=== PATIENT | female | born 1960 | race Caucasian/White ===

== ENCOUNTER 2020-11-04 07:45 | Outpatient (REF) | payer OTHER, SELFPAY ==
[2020-11-04 10:34] LABS: Anion Gap 11 (12-20); Blood Urea Nitrogen 18 mg/dL (9-16); Calcium 9.1 mg/dL (8.4-10.2); Carbon Dioxide 29 mmol/L (22-29); Chloride 104 mmol/L (96-108); Cholesterol 188 mg/dL; Estimated Glomerular Filt Rate > 60; Glucose Fasting 97 mg/dL (60-99); HDL Cholesterol 87 mg/dL; LDL Cholesterol Calculated 87 mg/dl; Potassium 4.8 mmol/l (3.3-5.1); Sodium 139 mmol/L (135-145); Triglycerides 73 mg/dL
== END 2020-11-04 07:46 | disposition home or self-care (01) ==
LOC: HO.10HDL 07:45
PROVIDERS: PCP Internal Medicine; Visit Provider Internal Medicine
DX: Z00.00 Encounter for general adult medical examination without abnormal findings (principal)
CPT/HCPCS: 80048; 80061

== ENCOUNTER 2020-12-03 12:54 | Outpatient (REF) | payer OTHER, SELFPAY ==
--- NOTE | 2020-12-03 12:59 | US_ITS ---
EXAMINATION: US DIAGNOSTIC ULTRASOUND BREAST, LEFT CLINICAL INFORMATION: Localized swelling/mass/lump left axilla. COMPARISON: None at this time. TECHNIQUE: Ultrasound of the breast is performed with real-time del castillo scale imaging and color Doppler. FINDINGS: Targeted left axillary ultrasound did not demonstrate any abnormal cystic or solid masses. No region of abnormal distal sound shadowing identified. There is a normal-appearing lymph node without evidence of cortical thickening or lobulation in region of where patient feels a lump. Results are discussed with the patient at time of visit. US/US breast LT limited IMPRESSION: No specific mammographic or ultrasound findings to suggest malignancy. Addendum to report will be made when old films are available. ASSESSMENT: BI-RADS 0: Incomplete -needs comparison with previous studies. RECOMMENDATION: Compare with previous studies.
--- NOTE | 2020-12-03 12:59 | MM_ITS ---
EXAMINATION: MM DIAGNOSTIC DIGITAL MAMMOGRAPHY, LEFT TARGETED LEFT BREAST ULTRASOUND CLINICAL INFORMATION: Localized swelling/mass/lump left axilla. The lifetime risk of breast cancer based on the Tyrer-Cuzick Model is 15.5%. COMPARISON: Mammography: None at this time. Patient has had previous studies done TECHNIQUE: Digital mammography is performed in craniocaudal and mediolateral oblique views along with computer-aided detection (CAD). Targeted left breast ultrasound. FINDINGS: The breasts are heterogeneously dense, which may obscure small masses (ACR BI-RADS breast composition Category c). There are no significant masses, abnormal calcifications, or other abnormalities. Targeted left axillary ultrasound did not demonstrate any abnormal cystic or solid masses. No region of abnormal distal sound shadowing identified. There is a normal-appearing lymph node without evidence of cortical thickening or lobulation in region of where patient feels lump. Results are discussed with the patient at time of visit. MM/MM diagnostic mammo unilat LT IMPRESSION: No specific mammographic or ultrasound findings to suggest malignancy. Addendum to report will be made when old films are available. ASSESSMENT: BI-RADS 0: Incomplete -needs comparison with previous studies. RECOMMENDATION: Compare with previous studies. This patient's information was entered into a reminder system with a target due date for their next mammogram.
== END 2020-12-03 12:55 | disposition home or self-care (01) ==
LOC: HO.MAMMO 12:54
PROVIDERS: PCP Internal Medicine; Visit Provider Internal Medicine
DX: R22.32 Localized swelling, mass and lump, left upper limb (principal)
CPT/HCPCS: 76642; 77065

== ENCOUNTER 2022-12-27 09:12 | Outpatient (REF) | payer OTHER, SELFPAY ==
[2022-12-27 10:35] LABS: MANUAL DIFF FLAG NO
[2022-12-27 10:46] LABS: Basophils Percent Auto 0.3 % (0-2); Eosinophils Absolute Auto 0.2 X10*3/uL (0.0-0.4); Eosinophils Percent Auto 2.1 % (0-4); Hematocrit 40.5 % (37.0-47.0); Hemoglobin 13.3 g/dl (12.0-16.0); Imm Gran Abs Auto 0.03 X10*3/uL (0.00-0.03); Imm Gran Pct Auto 0.4 % (0.0-0.4); Lymphocytes Absolute Auto 2.4 X10*3/uL (1.2-4.9); Lymphocytes Percent Auto 33.3 % (20-40); Mean Corpuscular HGB Conc 32.8 g/dl (31.0-35.0); Mean Corpuscular Volume 91.4 fL (80.0-98.0); Mean Platelet Volume 9.7 fL (9.4-12.3); Monocytes Absolute Auto 0.4 X10*3/uL (0.1-1.2); Neutrophils Absolute Auto 4.2 x10*3/uL (2.0-8.3); Neutrophils Percent Auto 57.9 % (45-73); Platelet Count 275 X10*3/uL (160-400); Red Blood Count 4.43 X10*6/uL (4.20-5.50); White Blood Count 7.2 X10*3/uL (4.8-10.8)
[2022-12-27 12:04] LABS: Alanine Aminotransferase 17 U/L (0-31); Albumin Level 4.1 g/dL (3.5-5.0); Anion Gap 12 (12-20); Aspartate Amino Transferase 23 U/L (5-31); Bilirubin Total 0.7 mg/dL (0.0-1.0); Blood Urea Nitrogen 19 mg/dL (9-16); Calcium 9.6 mg/dL (8.4-10.2); Carbon Dioxide 29 mmol/L (22-29); Chloride 107 mmol/L (96-108); Cholesterol 203 mg/dL; Estimated Glomerular Filt Rate > 60; Glucose Random 100 mg/dL (60-115); HDL Cholesterol 81 mg/dL; LDL Cholesterol Calculated 106 mg/dl; Potassium 5.2 mmol/L (3.3-5.1); Sodium 143 mmol/L (135-145); Total Protein 6.5 g/dL (6.5-8.0); Triglycerides 80 mg/dL
[2022-12-27 12:05] LABS: Alkaline Phosphatase 66 U/L (39-117)
[2022-12-27 12:20] LABS: Folate 16.3 ng/mL (> or = 4.0); Free T4 (Free Thyroxine) 0.83 ng/dL (0.71-1.85); Thyroid Stimulating Hormone 1.77 uIU/mL (0.32-4.0); Vitamin B12 563 pg/mL (200-900); Vitamin D 25-OH Total 32.9 ng/mL (>30)
== END 2022-12-27 09:13 | disposition home or self-care (01) ==
LOC: HO.10HDL 09:12
PROVIDERS: Visit Provider Internal Medicine
DX: R92.1 Mammographic calcification found on diagnostic imaging of breast (principal); E78.00 Pure hypercholesterolemia, unspecified
CPT/HCPCS: 36415; 80053; 80061; 82306; 82607; 82746; 84439; 84443; 85025

== ENCOUNTER → 2023-02-24 09:06 | Outpatient (BNVA) | payer OTHER, SELFPAY | PROVIDERS: PCP Internal Medicine; Visit Provider Internal Medicine | DX: Z13.89 Encounter for screening for other disorder (principal) ==

== ENCOUNTER 2023-08-17 07:55 | Day surgery (SDC) | payer OTHER, SELFPAY ==
[2023-08-15 07:18] VITALS: BMI 20.8
--- NOTE | 2023-08-16 10:45 | P.CONAN_ITS ---
Documented by User: Emmanuelle Saab NP 08/16/23 10:46 HPI - Anesthesia Eval Consult details Narrative: 63yo F for Colonoscopy PMFSH Active Problems Active Problems: All Active Problems (Updated 02/24/23 @ 09:44 by Maday De Luna MD) Colon cancer screening (Acute) Hyperkalemia (Acute) Elevated fasting blood sugar (Acute) Hyperkalemia (Acute) Breast calcification, right (Acute) Mass of left axilla (Acute) Annual physical exam (Acute) Past Medical History Medical History Pneumonia Right bundle branch block Family History Family History Father Dementia Chronic mental illness Pancreatic cancer Mother Hypertension Temporal arteritis Hyperthyroidism Sister Colon polyps Breast cancer H/O mastectomy Maternal Grandmother Breast cancer H/O mastectomy Paternal Grandfather Lung cancer Surgical History Surgical History History of tonsillectomy History of wisdom tooth extraction Social History Social History Housing: House Alcohol intake: current Patient Tobacco Use Status: Never used Tobacco e-Cigarette/Vaping Use: Never Used Second Hand Smoke Exposure: No Use of substances other than those prescribed or required for medical reasons: No Are you DNR?: No Advance Directives: No Advance Directives Information Provided: Yes Current occupational status: employed Meds Allergies Allergy/AdvReac Type Severity Reaction Status Date / Time No Known Allergies Allergy Verified 02/24/23 09:16 Home Medications Medication Instructions Recorded Confirmed Last Taken Type multivitamin 1 tab PO DAILY 11/10/20 01/10/23 Unknown History uvafem 01/10/23 Unknown History Exam Exam Date and Time: August 16, 2023 1045 Height,Weight and Vital Signs: Height 5 ft 8 in Weight 62.142 kg Assessment and Plan Assessment Anesthesia Assessment: Chart Reviewed Documented by User: Ro Terrell MD 08/17/23 09:09 [facility] Past Medical History Medical History Pneumonia Right bundle branch block Family History Family History Father Dementia Chronic mental illness Pancreatic cancer Mother Hypertension Temporal arteritis Hyperthyroidism Sister Colon polyps Breast cancer H/O mastectomy Maternal Grandmother Breast cancer H/O mastectomy Paternal Grandfather Lung cancer Family history of problems with anesthesia: No Surgical History Surgical History History of tonsillectomy History of wisdom tooth extraction History of Problems with Anesthesia: No Social History Social History Housing: House Alcohol intake: current Patient Tobacco Use Status: Never used Tobacco e-Cigarette/Vaping Use: Never Used Second Hand Smoke Exposure: No Use of substances other than those prescribed or required for medical reasons: No Are you DNR?: No Advance Directives: No Advance Directives Information Provided: Yes Current occupational status: employed Meds Allergies Allergy/AdvReac Type Severity Reaction Status Date / Time No Known Allergies Allergy Verified 02/24/23 09:16 Home Medications Medication Instructions Recorded Confirmed Last Taken Type multivitamin 1 tab PO DAILY 11/10/20 01/10/23 Unknown History uvafem 01/10/23 Unknown History Exam Airway Mallampati Class: II TM Dist: >3cm Neck ROM: Full Assessment and Plan Assessment Anesthesia Assessment: Anesthesia Plan Discussed Final Anesthetic Review Family History of Problems with Anesthesia: No History of Problems with Anesthesia: No NPO: Yes ASA Class: II Final Preanesthetic Review: No Changes in Pt Med Stat, Meds/Allgs Chart Reviewed, Consent Obtained/Reviewed and Anes Risks/Benef Reviewed Patient Risk: Low Procedure Risk: Low Anesthetic Plan Anesthetic Plan: MAC: Disposition: Standard PACU
[2023-08-17 08:25] VITALS: BP 152/77; PULSE 83; RESP 16; TEMP 36.6; O2SAT 99
--- NOTE | 2023-08-17 08:36 | P.HPSUR_ITS ---
Pre-Procedural Eval Section A Date of Service: 08/17/23 Section B Chief Complaint: Encounter for screening for malignant neoplasm Details of Present Illness: sister with polyps Relevant Family History (Specify if Yes): Yes Relevant Social History: None Present Medications: see Short Stay Collaborative assessment Medical History: Significant History (Pneumonia Right bundle branch block) History of Previous Operations: Relevant previous surgery/procedure and date(s) (tonsils) Allergies: Allergies Allergy/AdvReac Type Severity Reaction Status Date / Time No Known Allergies Allergy Verified 02/24/23 09:16 Review of Systems Sugical H&P ROS: Negative: Constitution, Cardiovascular, Respiratory, Neurological, Psychiatric, Hem-Onc, Allergic/Immunologic, Gastrointestinal, Genitourinary, Musculoskeletal, Integumentary, Endocrine and E yes/Ears/Nose/Throat Exam Surgical H&P Exam: Normal: HEENT, Normal: Heart, Normal: Lungs, Normal: Extremities, Normal: Abdomen, Normal: Skin and Normal: Neurological Plan Diagnosis/Plan: Unchanged I have reviewed the history and physical and performed a pertinent physical examination on my patient. No changes have occurred unless specified. Time Spent With Patient Time: Total time managing care of this patient today ____ minutes.
[2023-08-17] MEDS: Lactated Ringers 1,000 ML 100 ML IVCONT (08:42)
--- NOTE | 2023-08-17 09:06 | P.OP_ITS ---
Operative Note Operative Note Date of Service: 08/17/23 Narrative: Operative Information Procedure Description: Colonoscopy Indication: screening Anesthesia: MAC COLONOSCOPY Instrument: Olympus variable stiffness pediatric scope 190L Colonoscopy Monitoring: Vital signs and clinical assessment, continuous EKG monitoring, Pulse oximetry, Carbon Dioxide monitoring and blood pressure monitoring were done throughout the procedure. Colon withdrawal time was 7 minutes. Procedure: The patient was placed in the left lateral decubitis position and pre-procedure medications were administered. After a digital rectal examination of the ano-rectum, the video colonoscope was inserted into the rectum and advanced through the colon to the cecum/TI. The colonoscope was slowly withdrawn in a retrograde panoramic fashion and the colon mucosa was carefully examined including a retroflexed view of the rectum. Findings and interventions are described below. Procedure Difficulty: moderate due to redundant colon Findings: Terminal Ileum-normal Cecum:normal Ascending Colon: normal Transverse Colon -normal Descending Colon:normal Sigmoid Colon: normal Rectum: Retroflexion with small internal hemorrhoids, grade I Anorectum - normal Colon preparation: [place] Bowel Preparation Scale Right colon; 2 Transverse colon: 3 Left colon; 3 (0 = Unprepared colon segment with mucosa not seen due to solid stool that cannot be cleared. 1 = Portion of mucosa of the colon segment seen, but other areas of the colon segment not well seen due to staining, residual stool and/or opaque liquid. 2 = Minor amount of residual staining, small fragments of stool and/or opaque liquid, but mucosa of colon segment seen well. 3 = Entire mucosa of colon segment seen well with no residual staining, small fragments of stool or opaque liquid) Impression and Post Procedure Diagnosis: redundant colon internal hemorrhoids Plan: High fiber diet leaflet Avoid straining at stool, epsom salts and sitz bath, anusol supps or cream Repeat Colonoscopy in 5 years due to FH of polyps or earlier if clinically indicated Above findings were reviewed with the patient and relevant handouts were provided if indicated.
[2023-08-17 09:37] VITALS: BP 80/45; PULSE 66; RESP 16; TEMP 36.4; O2SAT 97
[2023-08-17 09:52] VITALS: BP 118/57; PULSE 67; RESP 16; O2SAT 98
[2023-08-17 10:07] VITALS: BP 117/57; PULSE 65; RESP 16; TEMP 36.8; O2SAT 98
== END 2023-08-17 10:25 | disposition home or self-care (01) ==
PROVIDERS: PCP Internal Medicine; Visit Provider Internal Medicine Gastroenterology
PROC: 0DJD8ZZ Inspection of Lower Intestinal Tract, Via Natural or Artificial Opening Endoscopic (ICD-10-PCS; CPT 45378; principal; 2023-08-17 09:10)
DX: Z12.11 Encounter for screening for malignant neoplasm of colon (principal); Z83.71 Family history of colonic polyps; K64.0 First degree hemorrhoids; Q43.8 Other specified congenital malformations of intestine; I45.10 Unspecified right bundle-branch block
CPT/HCPCS: 45378

== ENCOUNTER → 2023-08-17 07:55 | Outpatient (BNV) | payer OTHER, SELFPAY | PROVIDERS: PCP Internal Medicine; Visit Provider Internal Medicine Gastroenterology | DX: Z12.11 Encounter for screening for malignant neoplasm of colon (principal); K64.9 Unspecified hemorrhoids; Q43.8 Other specified congenital malformations of intestine | CPT/HCPCS: 45378 ==

== ENCOUNTER 2023-08-28 09:03 | Outpatient (AMB) | payer OTHER, SELFPAY ==
--- NOTE | 2023-08-28 09:07 | MHC.OFFVIS ---
Intake Vital Signs 08/28/23 09:08 Height 5 ft 8 in Weight 136 lb 10.986 oz BMI 20.8 BP 134/76 Blood Pressure Location Lt brachial Position Sitting Pulse 98 Intake Visit Reasons: S/p Colon Intake Note: Princess presents in the office as a follow up colonoscopy. CC: She states that she is not having any concerns - just here for the results. [employer] Required: No Allergies No Known Allergies Allergy (Verified 08/28/23 09:10) HPI HPI Comments History of Present Illness Details 62 year old female presenting to the office for follow up. 06/26/23: Fam hx is documented as fam hx of colon cancer in her sister however she clarifies that she had polyps not CRC. Otherwise pt does have any personal or fam hx of colon cancer. Last colo 2018: no polyps. diverticulosis. Patient does not have any other gastrointestinal symptoms to include abdominal pain, nausea, vomiting, diarrhea, blood in stool, weight loss. Labs reviewed to confirm patient does not have anemia. 08/17/23: [place] Good prep. redundant colon internal hemorrhoids 08/28/23: No gastrointestinal complaints. Reviewed colo report. [facility] Medical History Pneumonia Right bundle branch block Surgical History Hx of colonoscopy History of wisdom tooth extraction History of tonsillectomy Family History Father Dementia Chronic mental illness Pancreatic cancer Mother Hypertension Temporal arteritis Hyperthyroidism Sister Colon polyps Breast cancer H/O mastectomy Maternal Grandmother Breast cancer H/O mastectomy Paternal Grandfather Lung cancer Social History Housing: House Alcohol intake: current Patient Tobacco Use Status: Never used Tobacco e-Cigarette/Vaping Use: Never Used Second Hand Smoke Exposure: No Current occupational status: employed Review of Systems Const All systems reviewed & are unremarkable except as noted in HPI and below Physical Exam Vital Signs: Last Vital Signs Pulse 98 08/28/23 09:08 BP 134/76 08/28/23 09:08 BMI result Body Mass Index 20.8 Gen appear: NAD, well nourished HEENT: no icterus, no cervical lymphadenopathy Chest: clear to auscultation CVS: Regular S1/S2 Abd: soft, nontender, nondistended Ext: no peripheral edema Neuro: A/Ox3, noted to move all extremities spontaneously Assessment & Plan Assessment & Plan (1) Family history of colonic polyps: Code(s): Z83.719 - Family history of colon polyps, unspecified Plan Since a fam hx of advanced polyps can not be excluded based on pt's report, we will cont with q5y colonoscopy schedule. Next colo will be due in 2027. Reminder set and bulletin board updated in People and Pages. Follow up PRN. Coding Level of Care Code Est Pt Level 3 (94212) Diagnoses Family history of colonic polyps Z83.719
[2023-08-28 09:08] VITALS: BP 134/76; PULSE 98; BMI 20.8
== END 2023-08-28 13:32 | disposition home or self-care (01) ==
PROVIDERS: Visit Provider Internal Medicine
DX: Z83.719 Family history of colon polyps, unspecified (principal)
CPT/HCPCS: 99213

== ENCOUNTER → 2023-08-28 09:03 | Outpatient (BNVA) | payer OTHER, SELFPAY | PROVIDERS: Visit Provider Internal Medicine ==

== ENCOUNTER 2024-07-17 07:33 | Outpatient (REF) | payer OTHER, SELFPAY ==
[2024-07-17 11:12] LABS: Appearance Urine Clear; Color Urine Yellow; Glucose Urine UA Negative (Negative); Leukocyte Esterase Urine Negative (Negative); Nitrite Urine Negative (Negative); Specific Gravity - Urine 1.015 (1.005-1.025); Urine Blood Negative (Negative); Urine Ketones Negative (Negative); Urine Protein Negative (Neg-Trace)
[2024-07-17 11:16] LABS: Bacteria Urine None Seen (None Seen); Hyaline Casts Urine 0-2 /LPF (0-2); RBC Urine 0-2 /HPF (0-2); Squamous Epithelial Cell Urine 0-2 /HPF (0-2); WBC Urine 0-5 /HPF (0-5)
[2024-07-17 11:38] LABS: MANUAL DIFF FLAG NO
[2024-07-17 11:41] LABS: Basophils Percent Auto 0.4 % (0-2); Eosinophils Absolute Auto 0.1 X10*3/uL (0.0-0.4); Eosinophils Percent Auto 1.7 % (0-4); Hematocrit 41.5 % (37.0-47.0); Hemoglobin 13.3 g/dl (12.0-16.0); Imm Gran Abs Auto 0.03 X10*3/uL (0.00-0.03); Imm Gran Pct Auto 0.4 % (0.0-0.4); Lymphocytes Absolute Auto 2.5 X10*3/uL (1.2-4.9); Lymphocytes Percent Auto 35.7 % (20-40); Mean Corpuscular Hemoglobin 29.7 pg (27.0-33.0); Mean Corpuscular Volume 92.6 fL (80.0-98.0); Mean Platelet Volume 10.3 fL (9.4-12.3); Monocytes Absolute Auto 0.6 X10*3/uL (0.1-1.2); Monocytes Percent Auto 8.2 % (2-11); Neutrophils Absolute Auto 3.7 x10*3/uL (2.0-8.3); Neutrophils Percent Auto 53.6 % (45-73); Platelet Count 231 X10*3/uL (160-400); Red Blood Count 4.48 X10*6/uL (4.20-5.50); Red Cell Distribution Width 12.3 % (11.0-16.0); White Blood Count 6.9 X10*3/uL (4.8-10.8)
[2024-07-17 11:52] LABS: Estimated Average Glucose 103 mg/dL; Hemoglobin A1c % 5.2 % (<6.0)
[2024-07-17 12:28] LABS: Alanine Aminotransferase 17 U/L (0-31); Alkaline Phosphatase 69 U/L (39-117); Anion Gap 11 (12-20); Aspartate Amino Transferase 20 U/L (5-31); Bilirubin Total 0.5 mg/dL (0.0-1.0); Blood Urea Nitrogen 12 mg/dL (9-16); Carbon Dioxide 28 mmol/L (22-29); Chloride 106 mmol/L (96-108); Cholesterol 173 mg/dL (<200); Estimated Glomerular Filt Rate > 60; Glucose Random 98 mg/dL (60-115); HDL Cholesterol 82 mg/dL (>40); LDL Cholesterol Calculated 71 mg/dL (<100); Potassium 4.2 mmol/L (3.3-5.1); Sodium 141 mmol/L (135-145); Total Protein 6.9 g/dL (6.5-8.0); Triglycerides 103 mg/dL (<150)
[2024-07-17 12:51] LABS: Folate 12.3 ng/mL (> or = 4.0); Vitamin B12 570 pg/mL (200-900)
[2024-07-17 12:55] LABS: Free T4 (Free Thyroxine) 0.79 ng/dL (0.71-1.85); Thyroid Stimulating Hormone 2.43 uIU/mL (0.32-4.0); Vitamin D 25-OH Total 50.2 ng/mL (>30)
== END 2024-07-17 07:34 | disposition home or self-care (01) ==
LOC: HO.10HDL 07:33
PROVIDERS: Visit Provider Internal Medicine
DX: R73.01 Impaired fasting glucose (principal); E78.00 Pure hypercholesterolemia, unspecified
CPT/HCPCS: 36415; 80053; 80061; 81001; 82306; 82607; 82746; 83036; 84439; 84443; 85025

== ENCOUNTER 2024-07-23 10:57 | Outpatient (AMB) | payer OTHER, SELFPAY ==
[2024-07-23 11:08] VITALS: BP 120/82; PULSE 77; O2SAT 98; BMI 20.8
--- NOTE | 2024-07-23 11:08 | A.OFFPC_ITS ---
Vital Signs 07/23/24 11:08 Height 5 ft 8 in Weight 137 lb BMI 20.8 BP 120/82 Blood Pressure Location Lt brachial Position Sitting Pulse 77 Pulse Source Pulse Oximeter Pulse Oximetry (%) 98 Oxygen Delivery Method Room Air Intake Visit Reasons: PE Allergies No Known Allergies Allergy (Verified 07/23/24 11:09) Medication List - Last Reconciled 07/23/24 by Vashti Dukes MD [AG1 green juice PO] [uvafem ] Tobacco use date assessed: 07/23/24 Dental Screening Dental Screen Date: 07/23/24 Did you have a dental visit in the last 12 months?: Yes Did you have a dental problem in the last 6 months where you did not have access to dental care?: No Was dental information given to patient?: Patient has dentist HPI PE HPI Details 64-year-old female with a history of jj vated blood sugar coming in for physical exam last seen in December 2022. Patient's colonoscopy is up-to-date 08/16/2023 mammogram is due. [facility] Medical History Pneumonia Right bundle branch block Surgical History Hx of colonoscopy History of wisdom tooth extraction History of tonsillectomy Family History (Updated 07/23/24 @ 11:41 by Vashti Dukes MD) Father Dementia Chronic mental illness Pancreatic cancer Mother Hypertension Temporal arteritis Hyperthyroidism Sister Colon polyps Breast cancer H/O mastectomy Maternal Grandmother Breast cancer H/O mastectomy Paternal Grandfather Lung cancer Paternal Grandmother CVA (cerebral vascular accident) Social History (Updated 07/23/24 @ 11:42 by Vashti Dukes MD) Housing: House Alcohol intake: current Comment: 2x a week 2 glasses Patient Tobacco Use Status: Never used Tobacco Tobacco use type: Cigarette e-Cigarette/Vaping Use: Never Used Second Hand Smoke Exposure: No Current occupational status: employed Cognitive needs: No Hearing needs: No Vision needs: Yes Questionnaire PHQ-9 Over the last 2 weeks, how often have you been bothered by any of the following problems? 1. Little interest or pleasure in doing things: not at all 2. Feeling down, depressed, or hopeless: not at all 3. Trouble falling or staying asleep, or sleeping too much: not at all 4. Feeling tired or having little energy: not at all 5. Poor appetite or overeating: not at all 6. Feeling bad about yourself - or that you are a failure or have let yourself or your family down: not at all 7. Trouble concentrating on things, such as reading the newspaper or watching television: not at all 8. Moving or speaking so slowly that other people could have noticed. Or the opposite - being so fidgety or restless that you have been moving around a lot more than usual: not at all 9. Thoughts that you would be better off or of hurting yourself in some way: not at all Total score: 0 Depression Screening Interpretation: Negative Depression Screening Done: Yes Source: Developed by Drs. Solo Hunter, Sandy Sung, Junior Dsouza and colleagues, with an educational colin from [employer]. Thrive Questionnaire Date Thrive assessed: 07/23/24 I am a: Patient What is your living situation today?: I have a steady place to live Within the past 12 months, did the food you bought not last and you didn't have the money to get more?: Never true Within the past 12 months, did you worry whether your food would run out before you got money to buy more?: Never true Do you have trouble paying for medicines?: No Do you have trouble getting transportation to medical appointments?: No Do you have trouble paying your heating and electricity bill?: No Do you have trouble taking care of your child, family member or friend?: No Do you have trouble with day-to-day activities such as bathing, preparing meals, shopping, managing finances, etc.?: No Are you currently unemployed and looking for a job?: No Are you interested in more education?: No Currently or been in a relationship where the following occur: No concerns reported THRIVE Score: 0 AUDIT C Alcohol Use Questionnaire (AUDIT-C) 1. How often do you have a drink containing alcohol?: 2-3 times a week 2. How many drinks containing alcohol do you have on a typical day when you are drinking?: 1 or 2 3. How often do you have six or more drinks on one occasion?: Never Total Score: 3 ELENA-7 AMB Questionnaire ELENA-7 Date ELENA - 7 assessed: 07/23/24 Feeling nervous, anxious, or on edge: 0 = Not at all Not being able to stop or control worryin = Not at all Worrying too much about different things: 0 = Not at all Trouble relaxin = Not at all Being so restless that it is hard to sit still: 0 = Not at all Becoming easily annoyed or irritable: 0 = Not at all Feeling afraid as if something awful might happen: 0 = Not at all Total ELENA-7 score (0-4 normal; 5-9 mild; 10-14 moderate; 15-21 severe): 0 Source: Developed by Drs. Solo Hunter, Sandy Sung, Junior Dsouza and colleagues, with an educational colin from [employer]. Review of Systems Const Denies poor appetite and Denies weakness Eyes Denies no additional complaints ENT Reports Normal hearing present, Denies dizziness, Denies nasal congestion, Denies tinnitus and Denies sore throat Card Denies chest pain, Denies syncope, Denies rapid heart rate and Denies dyspnea Resp Denies cough and Denies dyspnea GI Denies change in stool character, Reports constipation, Denies diarrhea, Denies nausea and Denies vomiting Denies urinary frequency, Denies difficulty voiding and Denies dysuria Neuro Reports Normal hearing present, Denies confusion, Denies dizziness, Denies syncope and Denies weakness Psych Denies confusion Physical exam (Primary Care) Vital Signs: Last Vital Signs Pulse 77 07/23/24 11:08 BP 120/82 07/23/24 11:08 Pulse Ox 98 07/23/24 11:08 Oxygen Delivery Method Room Air 07/23/24 11:08 BMI result Body Mass Index 20.8 Tobacco/Smoking Status: Tobacco use Status Tobacco use date assessed 07/23/24 07/23/24 11:11 Patient Tobacco Use Status Never used Tobacco 07/23/24 11:11 Tobacco use type Cigarette 07/23/24 11:11 e-Cigarette/Vaping Use Never Used 07/23/24 11:11 PHQ-9: PHQ-9 Score PHQ-9: Total score 0 07/23/24 11:11 Depression Screening Interpretation: Negative Thrive Assessment: Date of Thrive Assessment Date Thrive assessed 07/23/24 07/23/24 11:11 Currently or been in a relationship where the following occur: No concerns reported Const General: No confusion Orientation/consciousness: No confusion HENMT Head: Yes normocephalic Ears: external ears normal and TM's normal bilaterally Face and sinus: Yes normal facial exam Mouth: moist mucous membranes Throat: Yes tonsils normal Eyes Conjunctivae: conjunctivae normal Pupils: Equal, round and reactive pupils present and Pupil accommodation reflex normal Direct Ophthalmoscopy: normal light reflex Neck Neck: No lymphadenopathy Thyroid: Thyroid normal Chest Chest palpation & inspection: normal inspection of the chest Resp Effort & Inspection: normal respiratory effort and no audible wheezes Auscultation: clear to auscultation bilaterally, no crackles, no wheezes and lung sounds not diminished Cardio Rate: regular rate Rhythm: regular rhythm Peripheral pulses: radial pulses present and dorsalis pedis present GI Palpation (GI): no masses Auscultation: normal bowel sounds and normoactive bowel sounds Rectal Exam - Female: deferred Skin General skin exam: no rashes or lesions noted Rashes: no rashes Neuro General: No confusion Cranial nerves: Yes Equal, round and reactive pupils present and Yes Normal hearing present Cognition (Neuro): normal cognition Gait exam (Neuro): Normal gait present Motor exam (neuro): 5/5 motor strength present throughout Deep tendon reflexes (DTR's): Right brachioradialis reflex intensity grade: 2+, Left brachioradialis reflex intensity grade: 2+, Right patellar reflex intensity grade: 2+ and Left patellar reflex intensity grade: 2+ Extrem General: No edema Assessment and Plan Assessment & Plan (1) Annual physical exam: Code(s): Z00.00 - Encounter for general adult medical examination without abnormal findings Plan: Patient is advised to eat healthy, keep well hydrated, keep active and have adequate sleep. (2) Family history of colonic polyps: Code(s): Z83.719 - Family history of colon polyps, unspecified Plan: 09/15/2023 and 5 years (3) COVID-19 virus infection: Comment: 06/2024 Code(s): U07.1 - COVID-19 Orders: Orders Complete Blood Count Auto Diff 1 Year R73.01 - Impaired fasting glucose Thyroid Stimulating Hormone 1 Year R73.01 - Impaired fasting glucose Vitamin D 25-OH Total 1 Year R73.01 - Impaired fasting glucose Lipid Panel 1 Year E78.00 - Pure hypercholesterolemia, unspecified, R73.01 - Impaired fasting glucose Comprehensive Met. Panel 1 Year R73.01 - Impaired fasting glucose Free T4 (Free Thyroxine) 1 Year R73.01 - Impaired fasting glucose Vitamin B12 and Folate 1 Year R73.01 - Impaired fasting glucose Coding Level of Care Code Est Pt Prev Care 40-64y(35530) Diagnoses Annual physical exam Z00.00 Family history of colonic polyps Z83.719 COVID-19 virus infection U07.1
== END 2024-07-23 11:52 | disposition home or self-care (01) ==
PROVIDERS: PCP Internal Medicine; Visit Provider Internal Medicine
DX: Z00.00 Encounter for general adult medical examination without abnormal findings (principal); Z83.719 Family history of colon polyps, unspecified; U07.1 COVID-19
CPT/HCPCS: 99396

== ENCOUNTER 2025-07-17 06:30 | Outpatient (REF) | payer OTHER, SELFPAY ==
[2025-07-17 06:50] LABS: MANUAL DIFF FLAG NO
[2025-07-17 07:17] LABS: Hematocrit 40.1 % (37.0-47.0); Hemoglobin 12.9 g/dl (12.0-16.0); Imm Gran Abs Auto 0.02 X10*3/uL (0.00-0.03); Imm Gran Pct Auto 0.2 % (0.0-0.4); Lymphocytes Absolute Auto 2.4 X10*3/uL (1.2-4.9); Mean Corpuscular HGB Conc 32.2 g/dl (31.0-35.0); Mean Corpuscular Hemoglobin 30.2 pg (27.0-33.0); Mean Corpuscular Volume 93.9 fL (80.0-98.0); NRBC Abs Auto 0.000 X10*3/uL (0.0-0.012); NRBC Pct Auto 0.0 /100WBC (0.0-0.2); Platelet Count 279 X10*3/uL (160-400); Red Blood Count 4.27 X10*6/uL (4.20-5.50); White Blood Count 10.9 X10*3/uL (4.8-10.8)
[2025-07-17 08:00] LABS: Alanine Aminotransferase 17 U/L (0-31); Albumin Level 4.2 g/dL (3.5-5.0); Alkaline Phosphatase 63 U/L (39-117); Anion Gap 13 (12-20); Aspartate Amino Transferase 24 U/L (5-31); Blood Urea Nitrogen 16 mg/dL (9-16); Calcium 9.5 mg/dL (8.4-10.2); Carbon Dioxide 28 mmol/L (22-29); Chloride 108 mmol/L (96-108); Cholesterol 181 mg/dL (<200); Estimated Glomerular Filt Rate > 60; HDL Cholesterol 82 mg/dL (>40); Potassium 5.6 mmol/L (3.3-5.1); Sodium 143 mmol/L (135-145); Total Protein 6.7 g/dL (6.5-8.0); Triglycerides 116 mg/dL (<150)
[2025-07-17 08:07] LABS: Free T4 (Free Thyroxine) 0.94 ng/dL (0.71-1.85); Thyroid Stimulating Hormone 2.24 uIU/mL (0.32-4.0)
[2025-07-17 08:24] LABS: Folate 12.8 ng/mL (> or = 4.0); Vitamin B12 504 pg/mL (200-900)
== END 2025-07-17 06:31 | disposition home or self-care (01) ==
LOC: HO.LAB 06:30
PROVIDERS: PCP Internal Medicine; Visit Provider Internal Medicine
DX: R73.01 Impaired fasting glucose (principal); E78.00 Pure hypercholesterolemia, unspecified
CPT/HCPCS: 36415; 80053; 80061; 82306; 82607; 82746; 84439; 84443; 85025

== ENCOUNTER 2025-07-24 11:13 | Outpatient (AMB) | payer OTHER, SELFPAY ==
[2025-07-24 11:15] VITALS: BP 122/68; PULSE 93; O2SAT 98; BMI 21.0
--- NOTE | 2025-07-24 11:15 | MHC.PC.OV ---
Vital Signs 07/24/25 11:15 Height 5 ft 8 in Weight 138 lb BMI 21.0 BP 122/68 Blood Pressure Location Lt brachial Position Sitting Pulse 93 Pulse Source Pulse Oximeter Pulse Oximetry (%) 98 Oxygen Delivery Method Room Air Intake Visit Reasons: Annual Physical Allergies No Known Allergies Allergy (Verified 07/24/25 11:15) Tobacco use date assessed: 07/24/25 Dental Screening Dental Screen Date: 07/24/25 Did you have a dental visit in the last 12 months?: Yes Did you have a dental problem in the last 6 months where you did not have access to dental care?: No Was dental information given to patient?: Patient has dentist HPI Annual Physical HPI Details palpitations, diarrhea 2 months intermittent PFSH Medical History Pneumonia Right bundle branch block Surgical History Hx of colonoscopy History of wisdom tooth extraction History of tonsillectomy Family History (Updated 07/23/24 @ 11:41 by Vashti Dukes MD) Father Dementia Chronic mental illness Pancreatic cancer Mother Hypertension Temporal arteritis Hyperthyroidism Sister Colon polyps Breast cancer H/O mastectomy Maternal Grandmother Breast cancer H/O mastectomy Paternal Grandfather Lung cancer Paternal Grandmother CVA (cerebral vascular accident) Social History (Updated 07/24/25 @ 11:37 by Vashti Dukes MD) Housing: House Alcohol intake: current Comment: 2x-3 a week 2 glasses Patient Tobacco Use Status: Never used Tobacco Tobacco use type: Cigarette e-Cigarette/Vaping Use: Never Used Second Hand Smoke Exposure: No Current occupational status: employed Cognitive needs: No Hearing needs: No Vision needs: Yes Questionnaire PHQ-9 Over the last 2 weeks, how often have you been bothered by any of the following problems? 1. Little interest or pleasure in doing things: not at all 2. Feeling down, depressed, or hopeless: not at all 3. Trouble falling or staying asleep, or sleeping too much: not at all 4. Feeling tired or having little energy: not at all 5. Poor appetite or overeating: not at all 6. Feeling bad about yourself - or that you are a failure or have let yourself or your family down: not at all 7. Trouble concentrating on things, such as reading the newspaper or watching television: not at all 8. Moving or speaking so slowly that other people could have noticed. Or the opposite - being so fidgety or restless that you have been moving around a lot more than usual: not at all 9. Thoughts that you would be better off or of hurting yourself in some way: not at all Total score: 0 Depression Screening Interpretation: Negative Depression Screening Done: Yes 62169 - PHQ-9 Billing: Yes Source: Developed by Drs. Solo Hunter, Sandy Sung, Junior Dsouza and colleagues, with an educational colin from [employer]. Thrive Questionnaire Date Thrive assessed: 07/24/25 I am a: Patient What is your living situation today?: I have a steady place to live Within the past 12 months, did the food you bought not last and you didn't have the money to get more?: Never true Within the past 12 months, did you worry whether your food would run out before you got money to buy more?: Never true Do you have trouble paying for medicines?: No Do you have trouble getting transportation to medical appointments?: No Do you have trouble paying your heating and electricity bill?: No Do you have trouble taking care of your child, family member or friend?: No Do you have trouble with day-to-day activities such as bathing, preparing meals, shopping, managing finances, etc.?: No Are you currently unemployed and looking for a job?: No Are you interested in more education?: No Please select the resources that you would like help with: None Currently or been in a relationship where the following occur: No concerns reported THRIVE Score: 0 AUDIT C Alcohol Use Questionnaire (AUDIT-C) 1. How often do you have a drink containing alcohol?: 2-3 times a week 2. How many drinks containing alcohol do you have on a typical day when you are drinking?: 1 or 2 3. How often do you have six or more drinks on one occasion?: Never Total Score: 3 ELENA-7 AMB Questionnaire ELENA-7 Date ELENA - 7 assessed: 07/24/25 Feeling nervous, anxious, or on edge: 0 = Not at all Not being able to stop or control worryin = Not at all Worrying too much about different things: 0 = Not at all Trouble relaxin = Not at all Being so restless that it is hard to sit still: 0 = Not at all Becoming easily annoyed or irritable: 0 = Not at all Feeling afraid as if something awful might happen: 0 = Not at all Total ELENA-7 score (0-4 normal; 5-9 mild; 10-14 moderate; 15-21 severe): 0 Source: Developed by Drs. Solo Hunter, Sandy Sung, Junior Dsouza and colleagues, with an educational colin from [employer]. ELENA-7 Assessment Billing ELENA-7 Assessment Tool: ELENA-7 Assessment 45661 Review of Systems Const Denies poor appetite and Denies weakness Eyes Denies no additional complaints ENT Reports Normal hearing present, Denies dizziness, Denies nasal congestion, Denies tinnitus and Denies sore throat Card Denies chest pain, Denies syncope, Denies rapid heart rate and Denies dyspnea Resp Denies cough and Denies dyspnea GI Denies change in stool character, Reports constipation, Denies diarrhea, Denies nausea and Denies vomiting Denies urinary frequency, Denies difficulty voiding and Denies dysuria Neuro Reports Normal hearing present, Denies confusion, Denies dizziness, Denies syncope and Denies weakness Psych Denies confusion Physical exam (Primary Care) Vital Signs: Last Vital Signs Pulse 93 07/24/25 11:15 BP 122/68 07/24/25 11:15 Pulse Ox 98 07/24/25 11:15 Oxygen Delivery Method Room Air 07/24/25 11:15 BMI result Body Mass Index 21.0 Tobacco/Smoking Status: Tobacco use Status Tobacco use date assessed 07/24/25 07/24/25 11:19 Patient Tobacco Use Status Never used Tobacco 07/24/25 11:37 Tobacco use type Cigarette 07/24/25 11:37 e-Cigarette/Vaping Use Never Used 07/24/25 11:37 PHQ-9: PHQ-9 Score PHQ-9: Total score 0 07/24/25 11:32 Depression Screening Interpretation: Negative Thrive Assessment: Date of Thrive Assessment Date Thrive assessed 07/24/25 07/24/25 11:19 Currently or been in a relationship where the following occur: No concerns reported Const General: No confusion Orientation/consciousness: No confusion HENMT Head: Yes normocephalic Ears: external ears normal and TM's normal bilaterally Face and sinus: Yes normal facial exam Mouth: moist mucous membranes Throat: Yes tonsils normal Eyes Conjunctivae: conjunctivae normal Pupils: Equal, round and reactive pupils present and Pupil accommodation reflex normal Direct Ophthalmoscopy: normal light reflex Neck Neck: No lymphadenopathy Thyroid: Thyroid normal Chest Chest palpation & inspection: normal inspection of the chest Resp Effort & Inspection: normal respiratory effort and no audible wheezes Auscultation: clear to auscultation bilaterally, no crackles, no wheezes and lung sounds not diminished Cardio Rate: regular rate Rhythm: regular rhythm Peripheral pulses: radial pulses present and dorsalis pedis present GI Palpation (GI): no masses Auscultation: normal bowel sounds and normoactive bowel sounds Rectal Exam - Female: deferred Skin General skin exam: no rashes or lesions noted Rashes: no rashes Neuro General: No confusion Cranial nerves: Yes Equal, round and reactive pupils present and Yes Normal hearing present Cognition (Neuro): normal cognition Gait exam (Neuro): Normal gait present Motor exam (neuro): 5/5 motor strength present throughout Deep tendon reflexes (DTR's): Right brachioradialis reflex intensity grade: 2+, Left brachioradialis reflex intensity grade: 2+, Right patellar reflex intensity grade: 2+ and Left patellar reflex intensity grade: 2+ Extrem General: No edema Coding Level of Care Code Est Pt Prev Care 40-64y(70812) Diagnoses Annual physical exam Z00.00 Hyperkalemia E87.5 Elevated fasting blood sugar R73.01 Palpitations R00.2 Additional Codes ELENA-7 Assessment Billing - ELENA-7 Assessment Tool: ELENA-7 Assessment 88442 ([id number]) PHQ-9 - 48819 - PHQ-9 Billing: Yes ([id number]) Assessment & Plan Assessment & Plan (1) Annual physical exam: Code(s): Z00.00 - Encounter for general adult medical examination without abnormal findings Category: Medical (2) Hyperkalemia: Code(s): E87.5 - Hyperkalemia Category: Medical (3) Elevated fasting blood sugar: Code(s): R73.01 - Impaired fasting glucose Category: Medical (4) Palpitations: Code(s): R00.2 - Palpitations Category: Medical Plan History of Present Illness The patient is a 65-year-old female presenting for a physical examination. She had her last colonoscopy in July 2023 and is scheduled for a mammogram in November 2024. The patient follows up with [facility] and was last seen on June 02, 2025. Recent blood work done on July 17 showed no anemia but mild leukocytosis. Potassium levels were elevated, and she was advised to decrease juice intake. Renal function was good, blood sugar was mildly elevated, liver function tests were normal, and cholesterol levels were very good. Levels of B12, folic acid, vitamin D, and thyroid function were all within normal limits. Health Maintenance - Colonoscopy last performed in July 2023 - Mammogram scheduled for November 2024 Social History Review of Systems Physical Exam General: Cooperative, healthy appearing, comfortable, no acute distress and well developed Orientation: Patient oriented x3 Limitations: No limitations Head: Normal to inspection Ears: Hearing grossly normal bilaterally Nose: Normal external nose present Face and sinus: Normal facial exam Eyes: Appearance normal, both eyes and all related structures Neck: Normal visual inspection and Yes full ROM Respiratory: Normal respiratory effort and able to speak in complete sentences. Clear to auscultation bilaterally Cardiovascular: Regular rate and rhythm. Normal S1 and S2 GI: Normal to inspection. Soft to palpation and nontender Skin: No rashes or lesions noted Neuro: Patient oriented x3 Extremities: Normal to inspection Results - Labs: No anemia, mild leukocytosis, elevated potassium, mildly elevated blood sugar, normal liver function, very good cholesterol levels, normal B12, folic acid, vitamin D, and thyroid function Plan Patient was informed and verbally consented to the use of an ambient scribe for clinic note documentation during this visit. 1. Mild Leukocytosis The patient has mild leukocytosis noted in recent blood work. 2. Hyperkalemia The patient was advised to decrease juice intake due to elevated potassium levels. 3. Mild Hyperglycemia The patient has mildly elevated blood sugar levels. Discussion Notes Patient Instructions - Decrease juice intake to manage elevated potassium levels. Orders: Orders Complete Blood Count Auto Diff Today R00.2 - Palpitations Magnesium Today R00.2 - Palpitations ECG 3 day holter monitor Today R00.2 - Palpitations Comprehensive Met. Panel Today R00.2 - Palpitations Hemoglobin A1c Today R00.2 - Palpitations
--- OUTSIDE RECORDS SUMMARY | 2025-07-24 12:34 | XMS_ITS | Clinical Summary ---
Author Organization [facility] Address [address] [facility] [address] [place] [address] Phone Care Team Providers Care Valuation Manager Name Role Phone Vashti Dukes MD Primary Care Provider [phone] Allergies No known active allergies Medications YUVAFEM 10 mcg TabIndications: Atrophic vaginitis PLACE 1 TABLET VAGINALLY 2 (TWO) TIMES A WEEK. 24 tablet 1 Active BIOTIN ORAL Take by mouth. 1 Active MULTIVITAMIN ORAL Daily, 0 Refills, Maintenance, 10/13/21 15:02:00 EST, Partial fill upon patient request if the prescription is for a schedule II opioid drug. 1 Active GAVILYTE-G 236-22.74-6.74 -5.86 gram solution 3 Active penicillin V potassium (VEETIDS) 500 MG tablet Take 1 tablet (500 mg total) by mouth 2 (two) times a day. Take w food, yogurt, probiotics. Finish all. 20 tablet 3 Active Active Problems Problem Noted Date Diagnosed Date Atrophic vaginitis 07/15/2020 Assessment & Plan (07/15/2020 6:20 PM EDT): Continues to be happy with Yuvafem. Immunizations Immunization Administration Dates Next Due COVID-19 (Pre-09/18) Pfizer Vaccine, mRNA, PF Family History Medical History Relation Comments No Known Problems Brother Hypertension Father Pancreatic cancer Father 2018 age 78 after Whipple procedure Tremor Father Alzheimer's disease Maternal Grandfather Breast cancer Maternal Grandmother didn't of disease Hypertension Mother Hyperthyroidism Mother Lung cancer Paternal Grandfather Stroke Paternal Grandmother Colon polyps Sister 1 ?if precancerous No Known Problems Sister 2 No Known Problems Sister 3 Relation Status Comments Brother Alive Father Maternal Grandfather Maternal Grandmother Mother Alive Paternal Grandfather Paternal Grandmother Sister 1 Alive Sister 2 Alive Sister 3 Alive Social History Tobacco Use Types Packs/Day Years Used Date Smoking Tobacco: Never Smokeless Tobacco: Never Tobacco Cessation:Counseling Given: Not Answered Alcohol Use Standard Drinks/Week Comments Yes 2 (1 standard drink = 0.6 oz pur e alcohol) Education Answer Date Recorded Are you interested in more education? Not on jamilah e 03/24/2023 Are you concerned about learning? Not on file 03/24/2023 No 03/24/2023 No 03/24/2023 Digital Access Answer Date Recorded No 04/25/2023 No 04/25/2023 No 04/25/2023 Reliable internet access at home? Not on file 04/25/2023 Device with a working camera? 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 Not on file Not on file Last Filed Vital Signs Vital Sign Reading Time Taken Comments Blood Pressure 124/78 03/07/2023 11:50 AM EDT Pulse 90 03/07/2023 11:50 AM EDT Temperature 37.5 C (99.5 F) 03/07/2023 11:50 AM EDT Respiratory Rate 16 03/07/2023 11:50 AM EDT Oxygen Saturation 98% 03/07/2023 11:50 AM EDT Inhaled Oxygen Concentration - - Weight 62.1 kg (137 lb) 03/07/2023 11:50 AM EDT per pt Height 169.5 cm (5' 6.73 ) 07/16/2020 9:05 AM ED T Body Mass Index 21.63 07/16/2020 9:05 AM EDT Plan of Treatment Health Maintenance Due Date Last Done Comments LIPID PANEL 1962 DEPRESSION SCREENING 1974 HEPATITIS C SCREENING 1980 HIV ONE-TIME SCREENING (18-65 YEARS) 1980 COLOGUARD 2007 COLONOSCOPY 2007 COLORECTAL CANCER SCREENING 2007 FIT TEST 2007 FOBT 2007 SIGMOIDOSCOPY 2007 VIRTUAL COLONOSCOPY 2007 PNEUMOCOCCAL VACCINES (50+ years) (2 of 2 - PCV) 08/18/2017 08/18/2016 PAP SMEAR 03/10/2020 03/10/2017 MAMMOGRAM 09/13/2022 09/13/2020, 05/29/2019 COVID-19 VACCINE ( season) 2024 09/19/2022, 04/12/2022, 09/28/2021, Additional history exists Adult Td,Tdap Booster 08/08/2027 08/08/2017 RSV VACCINE (1 - 1-dose 75+ series) 2037 ZOSTER VACCINES Completed 10/26/2022, 04/12/2022 SMOKING STATUS SCREENING (Once After 26 Yrs) Completed 03/07/2023 HEPATITIS A VACCINES Aged Out No long er eligible based on patient's age to complete this topic HIB VACCINES Aged Out No longer eligi ble based on patient's age to complete this topic MENINGOCOCCAL VACCINES (ACWY) Aged Out No longer eligible based on patient's age to complete this topic MENINGOCOCCAL VACCINES (B) Aged Out N o longer eligible based on patient's age to complete this topic Medical Devices Not on file Procedures Procedure Name Priority Date/Time Associated Diagnosis Comments MAMMOGRAPHY Routine 09/13/2020 PAP SMEAR FOR RESULT ENTRY ONLY Routine 03/10/2017 from Last 3 Months or Most Recently Relevant to Health Maintenance Results * MAMMOGRAPHY FOR RESULT ENTRY ONLY (09/13/2020) us Xena Hong MD HEALTH MAINTENANCE F inal Result * PAP SMEAR FOR RESULT ENTRY ONLY (03/10/2017) us Xena Hong MD HEALTH MAINTENANCE F inal Result from Last 3 Months or Most Recently Relevant to Health Maintenance [facility] H[facility] Care Teams Valuation Manager Relationship Specialty Start Date End Date Vashti Dukes MD [address] [place] [id number] PCP - General Internal Medicine 12/03/19 Additional Source Comments The information contained in this document represents components of the legal health record. It is not the complete legal health record.[facility]
== END 2025-07-24 11:56 | disposition home or self-care (01) ==
LOC: HO.HMCH 11:14
PROVIDERS: PCP Internal Medicine; Visit Provider Internal Medicine
DX: Z00.00 Encounter for general adult medical examination without abnormal findings (principal); E87.5 Hyperkalemia; R73.01 Impaired fasting glucose; R00.2 Palpitations

== ENCOUNTER → 2025-07-24 11:13 | Outpatient (BNVA) | payer OTHER, SELFPAY | PROVIDERS: PCP Internal Medicine; Visit Provider Internal Medicine | DX: Z00.00 Encounter for general adult medical examination without abnormal findings (principal); E87.5 Hyperkalemia; R73.01 Impaired fasting glucose; R00.2 Palpitations; D72.829 Elevated white blood cell count, unspecified; R73.9 Hyperglycemia, unspecified | CPT/HCPCS: 96127 ==

== ENCOUNTER 2025-08-01 07:04 | Outpatient (REF) | payer OTHER, SELFPAY ==
--- OUTSIDE RECORDS SUMMARY | 2025-08-01 07:08 | XMS_ITS | Clinical Summary ---
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 Not on file Not [...] SMEAR 03/10/2020 03/10/2017 MAMMOGRAM 09/13/2022 09/13/2020, 05/29/2019 INFLUENZA VACCINE (#1) 2025 , 09/26/2021, 08/20/2020, Additional history exists COVID-19 VACCINE (2024- season) 2025 09/19/2022, 04/12/2022, 09/28/2021, Additional history exists Adult [...] Procedure Name Priority Date/Time Associated Diagnosis Comments HM MAMMOGRAPHY Routine 09/13/2020 HM PAP SMEAR FOR RESULT ENTRY ONLY Routine 03/10/2017 from Last 3 Months or Most Recently Relevant to Health Maintenance Results * HM MAMMOGRAPHY FOR RESULT ENTRY ONLY (09/13/2020) us Xena Hong MD HEALTH MAINTENANCE F inal Result * HM PAP SMEAR FOR RESULT ENTRY ONLY (03/10/2017) us Xena Hong MD HEALTH MAINTENANCE F inal Result from Last 3 Months or Most Recently Relevant to Health [place] [id number] [facility] HMO Care Teams Sql Bi Developer Relationship Specialty Start Date End Date Vashti Dukes MD [address] [place] [phone] PCP - General Internal Medicine 12/03/19 Additional Source Comments The information contained in this document represents components of the legal health record. It is not the complete legal health record.[facility]
[2025-08-01 07:22] LABS: MANUAL DIFF FLAG NO
[2025-08-01 07:40] LABS: Hematocrit 39.8 % (37.0-47.0); Hemoglobin 13.0 g/dl (12.0-16.0); Imm Gran Abs Auto 0.02 X10*3/uL (0.00-0.03); Imm Gran Pct Auto 0.3 % (0.0-0.4); Lymphocytes Absolute Auto 2.3 X10*3/uL (1.2-4.9); Mean Corpuscular HGB Conc 32.7 g/dl (31.0-35.0); Mean Corpuscular Hemoglobin 30.2 pg (27.0-33.0); Mean Corpuscular Volume 92.3 fL (80.0-98.0); NRBC Abs Auto 0.000 X10*3/uL (0.0-0.012); NRBC Pct Auto 0.0 /100WBC (0.0-0.2); Platelet Count 315 X10*3/uL (160-400); Red Blood Count 4.31 X10*6/uL (4.20-5.50); White Blood Count 6.9 X10*3/uL (4.8-10.8)
[2025-08-01 07:54] LABS: Hemoglobin A1C 120.4769 umol/L; Total Hemoglobin (HGBA1C) 3429.0694 umol/L
[2025-08-01 08:07] LABS: Alanine Aminotransferase 20 U/L (0-31); Albumin Level 4.2 g/dL (3.5-5.0); Alkaline Phosphatase 61 U/L (39-117); Anion Gap 12 (12-20); Aspartate Amino Transferase 26 U/L (5-31); Blood Urea Nitrogen 15 mg/dL (9-16); Calcium 9.5 mg/dL (8.4-10.2); Carbon Dioxide 28 mmol/L (22-29); Chloride 108 mmol/L (96-108); Estimated Glomerular Filt Rate > 60; Magnesium 2.0 mg/dL (1.6-2.6); Potassium 5.5 mmol/L (3.3-5.1); Sodium 142 mmol/L (135-145); Total Protein 6.6 g/dL (6.5-8.0)
== END 2025-08-01 07:05 | disposition home or self-care (01) ==
LOC: HO.LAB 07:04
PROVIDERS: PCP Internal Medicine; Visit Provider Internal Medicine
DX: Z13.1 Encounter for screening for diabetes mellitus (principal); R00.2 Palpitations
CPT/HCPCS: 36415; 80053; 83036; 83735; 85025

== ENCOUNTER → 2025-08-08 10:40 | Outpatient (REF) | payer OTHER, SELFPAY ==
--- NOTE | 2025-08-08 10:43 | HM_ITS ---
* Total monitoring time 2 days. * Underlying rhythm is sinus with an average rate of 82/Min. * Rare supraventricular ectopy. * Rare ventricular ectopy. * No significant pauses or high-grade AV blocks. * Patient markers associated with sinus rhythm and mild sinus tachycardia. * 'Flutter' in patient diary associated with mild sinus tachycardia. MTDD
--- OUTSIDE RECORDS SUMMARY | 2025-08-08 12:15 | XMS_ITS | Clinical Summary ---
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 Not [...] Relevant to Health [place] [id number] [facility] HMO Care Teams Film Editor Supervisor Relationship Specialty Start Date End Date Vashti Dukes MD [address] [place] [phone] PCP - General Internal Medicine 12/03/19 Additional Source Comments The information contained in this document represents components of the legal health record. It is not the complete legal health record.[facility]
== END ==
LOC: HO.CARD 10:40
PROVIDERS: PCP Internal Medicine; Visit Provider Internal Medicine
DX: R00.2 Palpitations (principal)
CPT/HCPCS: 93242

== ENCOUNTER → 2025-08-08 10:43 | Outpatient (BNV) | payer OTHER, SELFPAY | PROVIDERS: PCP Internal Medicine; Visit Provider Internal Medicine | DX: R00.0 Tachycardia, unspecified (principal); I49.3 Ventricular premature depolarization | CPT/HCPCS: 93227 ==

== ENCOUNTER 2025-09-18 07:09 | Outpatient (REF) | payer OTHER, SELFPAY ==
[2025-09-18 08:07] LABS: Anion Gap 13 (12-20); Blood Urea Nitrogen 12 mg/dL (9-16); Calcium 9.5 mg/dL (8.4-10.2); Carbon Dioxide 27 mmol/L (22-29); Chloride 109 mmol/L (96-108); Estimated Glomerular Filt Rate > 60; Potassium 4.6 mmol/L (3.3-5.1); Sodium 144 mmol/L (135-145)
== END 2025-09-18 07:10 | disposition home or self-care (01) ==
LOC: HO.LAB 07:09
PROVIDERS: PCP Internal Medicine; Visit Provider Internal Medicine
DX: E87.5 Hyperkalemia (principal)
CPT/HCPCS: 36415; 80048